=== PATIENT | female | born 1995 | race Hispanic/Latino ===

== ENCOUNTER → 2023-05-01 | Outpatient (CLI) | LOC: M SOG 14:46 | PROVIDERS: ATTEND Orthopaedic Surgery Hand Surgery | DX: M25.531 Pain in right wrist (principal) ==

== ENCOUNTER → 2024-07-13 | Outpatient (CLI) | payer OTHER | LOC: M SOG 16:15 | PROVIDERS: ATTEND Physician Assistant | DX: S52.511A Displaced fracture of right radial styloid process, initial encounter for closed fracture (principal); W18.30XA Fall on same level, unspecified, initial encounter; Y92.009 Unspecified place in unspecified non-institutional (private) residence as the place of occurrence of the external cause ==

== ENCOUNTER → 2024-08-04 | Outpatient (CLI) | payer OTHER | LOC: M PLAIMG 06:58 | PROVIDERS: ATTEND Physician Assistant | DX: M25.531 Pain in right wrist (principal) ==

== ENCOUNTER 2024-11-01 07:03 | Day surgery (SDC) | payer OTHER ==
[~2024-11-01] VITALS: Ht 162.6 cm; Wt 77.2 kg
[~2024-11-01 07:03] MED LIST: HYDR-643 PO; LIDOCAINE W/EPINEPHRINE 1% 20ML VIAL XX ONE; SERT50TA29 PO; SODIUM BICARBONATE 8.4% INJ 50MEQ 50ML VIAL XX ONE
[2024-11-01] MEDS: BACITRACIN OINTMENT 30GM TUBE As Ordered ONE (08:45)
[2024-11-01 08:58] VITALS: BP 126/59; TEMP 97.5; O2SAT 97
== END 2024-11-01 09:05 | disposition home or self-care (01) ==
LOC: M SDC 07:03
PROVIDERS: ATTEND Orthopaedic Surgery Hand Surgery
DX: M65.4 Radial styloid tenosynovitis [de Quervain] (principal)

== ENCOUNTER 2025-06-10 12:10 | Emergency (ER) | payer OTHER ==
[~2025-06-10] VITALS: Ht 162.6 cm; Wt 74.3 kg
[~2025-06-10 12:10] MED LIST changes: +FLUO-365; -LIDOCAINE W/EPINEPHRINE 1% 20ML VIAL XX ONE; -SODIUM BICARBONATE 8.4% INJ 50MEQ 50ML VIAL XX ONE
[2025-06-10] MEDS ORDERED: INCA0.35 (12:22)
[2025-06-10 14:35] LABS: KETONE, URINE AUTO RFX TRACE mg/dL (NEGATIVE); MUCUS, URINE RFX SMALL (NEGATIVE); RBC, URINE AUTO RFX 1 /HPF (0-3); SQUAM EPITHELIAL CELL UR AURFX 2 /HPF (0-6); WBC, URINE AUTO RFX 6 /HPF (0-3)
[2025-06-10 14:36] LABS: LEUKOCYTE ESTERASE UR AUTO RFX TRACE (NEGATIVE); NITRITE, URINE AUTO RFX POSITIVE (NEGATIVE)
[2025-06-10] MEDS ORDERED: NITR100C3 PO (17:39)
[2025-06-10 17:46] VITALS: BP 120/56; TEMP 99; O2SAT 100
== END 2025-06-10 17:47 | disposition home or self-care (01) ==
LOC: M ED 13:02
DX: O02.1 Missed abortion (principal); N39.0 Urinary tract infection, site not specified; N80.8 Other endometriosis; Z3A.01 Less than 8 weeks gestation of pregnancy; Z79.899 Other long term (current) drug therapy

== ENCOUNTER → 2025-06-29 | Outpatient (CLI) | payer OTHER ==
[~2025-06-29] MED LIST changes: +INCA0.35; +NITR100C3 PO
== END ==
LOC: M PLALAB 10:24
PROVIDERS: ATTEND Obstetrics & Gynecology
DX: O36.80X0 Pregnancy with inconclusive fetal viability, not applicable or unspecified (principal)

== ENCOUNTER → 2025-06-29 | Outpatient (REF) | payer OTHER | LOC: M PLALAB 12:30 | PROVIDERS: ATTEND Obstetrics & Gynecology | DX: Z53.9 Procedure and treatment not carried out, unspecified reason (principal) ==